=== PATIENT | female | born 1955 | race Caucasian/White ===

== ENCOUNTER 2017-03-11 10:47 | Outpatient (CLI) | payer OTHER ==
--- NOTE | 2017-03-11 14:15 | MMO ---
BILATERAL SCREENING MAMMOGRAMS: Date: 03/11/17 Comparison made to prior exams from 2015, 2014, and 2013. This patient's mammogram was interpreted with the assistance of computer-aided detection. FINDINGS: Heterogeneously dense glandular pattern. There are benign calcifications. No evidence of mass or dist ortion. No interval change identified. Recommend one year follow-up. IMPRESSION: BIRADS 2: Benign Finding(s) POS: [facility]
== END 2017-03-11 10:48 | disposition home or self-care (01) ==
LOC: MAMMO 10:47
DX: Z12.31 Encounter for screening mammogram for malignant neoplasm of breast (principal)
CPT/HCPCS: 77067; G0202

== ENCOUNTER 2018-07-02 14:17 | Outpatient (CLI) | payer OTHER ==
--- NOTE | 2018-07-07 13:24 | MMO ---
Bilateral MAMMO Bilat Screen [facility]. CLINICAL HISTORY: Patient is 63 years old and is seen for screening. The patient has no family history of breast cancer. The patient has no personal history of cancer. VIEWS: The views performed were: bilateral craniocaudal with tomosynthesis and bilateral mediolateral oblique with tomosynthesis. FILMS COMPARED: The present examination has been compared to prior imaging studies performed at [facility] on 09/09/2013, 10/13/2014, 12/26/2015 and 03/11/2017. MAMMOGRAM FINDINGS: There are scattered fibroglandular densities. There are benign appearing calcifications seen in both breasts. There are no suspicious masses, suspicious calcifications, or new areas of architectural distortion. IMPRESSION: THERE IS NO MAMMOGRAPHIC EVIDENCE OF MALIGNANCY. A ROUTINE FOLLOW-UP MAMMOGRAM IN 1 YEAR IS RECOMMENDED. THE RESULTS OF THIS EXAM WERE SENT TO THE PATIENT. ACR BI-RADS Category 2 - Benign finding MAMMOGRAPHY NOTE: 1. A negative mammogram report should not delay a biopsy if a dominant of clinically suspicious mass is present. 2. Approximately 10% to 15% of breast cancers are not detected by mammography. 3. Adenosis and dense breasts may obscure an underlying neoplasm.
== END 2018-07-02 14:18 | disposition home or self-care (01) ==
LOC: BICMAMMO 14:17
DX: Z12.31 Encounter for screening mammogram for malignant neoplasm of breast (principal)
CPT/HCPCS: 77063; 77067

== ENCOUNTER 2021-04-27 13:29 | Outpatient (CLI) | payer BC | END 2021-04-27 13:30 | disposition home or self-care (01) | LOC: BICMAMMO 13:29 | PROVIDERS: ATTEND Family Medicine | DX: Z12.31 Encounter for screening mammogram for malignant neoplasm of breast (principal); Z13.820 Encounter for screening for osteoporosis; M85.89 Other specified disorders of bone density and structure, multiple sites | CPT/HCPCS: 77063; 77067; 77080 ==

== ENCOUNTER 2021-06-09 14:38 | Inpatient (IN) | payer BC ==
[2021-06-09] MEDS ORDERED: Morphine 4 MG/ML VIAL SLOW IVP PRN ×2 (17:24→17:28)
[2021-06-09] MEDS ORDERED: Dextrose 50% Abboject 50 ML SYRINGE SLOW IVP PRN (17:24)
[2021-06-09] MEDS ORDERED: Promethazine HCl 25 MG/ML VIAL IM PRN (17:24)
[2021-06-09] MEDS ORDERED: Dextrose 5% in Water 1,000 ML IV PRN (17:24)
[2021-06-09] MEDS ORDERED: hydrALAZINE 20 MG/ML VIAL SLOW IVP PRN (17:24)
[2021-06-09 17:36] VITALS: BMI 23.3
[2021-06-09] MEDS: D5 1/2 NS w/20 mEq KCL 1,000 ML IV SCH (19:11)
[2021-06-09] MEDS: Enoxaparin Sodium 40 MG/0.4 ML SYRINGE SC SCH (21:08)
[2021-06-09] MEDS: Famotidine/PF 20 mg/2ml Vial SLOW IVP SCH (21:10)
[2021-06-09] MEDS: Famotidine 20 MG TAB PO SCH (21:10)
[2021-06-09] MEDS: Zolpidem Tartrate 5 MG TAB PO PRN (22:39)
[2021-06-09] MEDS: ALPRAZolam 0.5 MG TAB PO PRN (22:39)
[2021-06-10 05:17] LABS: #Eosinphils 0.1 thou/uL (0.0-0.7); #Lymphocytes 2.2 thou/uL (1.20-3.40); #Monocytes 0.5 thou/uL (0.11-0.59); #Neutrophils 3.2 thou/uL (1.40-6.50); %Basophils 0.5 % (0.0-1.0); %Eosinophils 2.3 % (0.0-10.0); %Lymphocytes 36.4 % (21.0-51.0); %Monocytes 7.9 % (0.0-10.0); %Neutrophils 52.9 % (42.0-75.0); Mean Corpuscular HGB CONC 33.1 g/dL (32.0-36.0); Mean Corpuscular Hemoglobin 30.6 pg (27.0-31.0); Mean Corpuscular Volume 92.4 fL (78.0-98.0); Mean Platelet Volume 7.3 fL (7.4-10.4); Platelet Count 211 thou/uL (130-400); RBC Distribution Width 11.9 % (11.5-14.5); Red Blood Cell (RBC) Count 3.59 mill/uL (4.20-5.40)
[2021-06-10] MEDS: D5 1/2 NS w/20 mEq KCL 1,000 ML IV SCH ×3 (05:29→19:59)
[2021-06-10 05:47] LABS: Anion Gap 11 mmol/L (10-20); BUN (Urea Nitrogen) 9 mg/dL (9.8-20.1); Calc. Creatinine Clearance 91 mL/min (70-130); Calcium 8.4 mg/dL (7.8-10.44); Carbon Dioxide 24 mmol/L (23-31); Chloride 108 mmol/L (98-107); Glucose 79 mg/dL (80-115); Potassium 3.4 mmol/L (3.5-5.1); Sodium 140 mmol/L (136-145)
[2021-06-10] MEDS: Famotidine 20 MG TAB PO SCH ×2 (08:25→21:25)
[2021-06-10] MEDS: Famotidine/PF 20 mg/2ml Vial SLOW IVP SCH ×2 (09:33→21:26)
[2021-06-10] MEDS: Ondansetron PF 4 MG/2 ML Vial IVP PRN ×2 (10:04→18:10)
[2021-06-10] MEDS: Zolpidem Tartrate 5 MG TAB PO PRN (21:24)
[2021-06-10] MEDS: ALPRAZolam 0.5 MG TAB PO PRN (21:25)
[2021-06-10] MEDS: Enoxaparin Sodium 40 MG/0.4 ML SYRINGE SC SCH (21:25)
[2021-06-11] MEDS: Famotidine/PF 20 mg/2ml Vial SLOW IVP SCH ×2 (09:00→22:00)
[2021-06-11] MEDS: Famotidine 20 MG TAB PO SCH ×2 (09:00→21:36)
[2021-06-11] MEDS: D5 1/2 NS w/20 mEq KCL 1,000 ML IV SCH ×2 (09:00→22:01)
[2021-06-11] MEDS ORDERED: Simethicone Chewable 80 MG TAB PO PRN (09:01)
[2021-06-11] MEDS: ALPRAZolam 0.5 MG TAB PO PRN (21:36)
[2021-06-11] MEDS: Zolpidem Tartrate 5 MG TAB PO PRN (21:36)
[2021-06-11] MEDS: Enoxaparin Sodium 40 MG/0.4 ML SYRINGE SC SCH (21:37)
[2021-06-12 08:38] VITALS: BP 133/66; TEMP 97.2
[2021-06-12] MEDS: Famotidine/PF 20 mg/2ml Vial SLOW IVP SCH (09:27)
[2021-06-12] MEDS: Famotidine 20 MG TAB PO SCH (09:28)
== END 2021-06-12 11:01 | disposition home or self-care (01) | DRG 390 ==
LOC: SURG A 16:26
PROVIDERS: ADMIT Surgery; ATTEND Surgery
PROC: 0D9670Z Drainage of Stomach with Drainage Device, Via Natural or Artificial Opening (ICD-10-PCS; principal; 2021-06-09)
DX: K56.600 Partial intestinal obstruction, unspecified as to cause (principal); F41.9 Anxiety disorder, unspecified; J45.909 Unspecified asthma, uncomplicated; G89.29 Other chronic pain; M54.9 Dorsalgia, unspecified; Z90.710 Acquired absence of both cervix and uterus; Z98.890 Other specified postprocedural states; Z79.899 Other long term (current) drug therapy; Z88.0 Allergy status to penicillin
CPT/HCPCS: 36415; 74019; 80048; 85025; J2405; J3480; S0028

== ENCOUNTER 2021-09-01 13:26 | Outpatient (CLI) | payer BC | END 2021-09-01 13:27 | disposition home or self-care (01) | LOC: RAD 13:26 | PROVIDERS: ATTEND Internal Medicine Gastroenterology | DX: R10.9 Unspecified abdominal pain (principal) | CPT/HCPCS: 74280 ==

== ENCOUNTER 2025-02-19 13:06 | Outpatient (CLI) | payer MEDICARE, BC | END 2025-02-19 13:07 | disposition home or self-care (01) | LOC: SCSMRI 13:06 | PROVIDERS: ATTEND Family Medicine | DX: M25.512 Pain in left shoulder (principal); S46.912A Strain of unspecified muscle, fascia and tendon at shoulder and upper arm level, left arm, initial encounter ==

== ENCOUNTER 2025-04-02 11:40 | Outpatient (CLI) | payer MEDICARE, BC | END 2025-04-02 11:41 | disposition home or self-care (01) | LOC: SCSBT 11:40 | PROVIDERS: ATTEND Family Medicine | DX: M85.89 Other specified disorders of bone density and structure, multiple sites (principal) | CPT/HCPCS: 77080 ==